=== PATIENT | female | born 1955 | race Caucasian/White ===

== ENCOUNTER 2016-05-22 12:32 | Day surgery (SDC) | payer BC ==
[~2016-05-22] VITALS: Ht 165.1 cm; Wt 108.0 kg
[~2016-05-22 12:32] MED LIST: BENICAR HCT 201 EACH PO; CELEBREX200 MG PO; GABAPENTIN300 MG PO; GABAPENTIN600 MG PO; METFORMIN HCL500 MG PO; SKELAXIN800 MG PO; SYNTHROID137 MCG PO; VITAMIN D-32000 UNI2 PO; VITAMIN E1000 UNI3 PO; WELCHOL625 MG PO; ZETIA10 MG PO
[2016-05-22 13:36] VITALS: BP 188/90
[2016-05-22 17:22] VITALS: BP 137/71
[2016-05-22 18:10] VITALS: BP 174/74
== END 2016-05-22 18:25 | disposition home or self-care (01) ==
LOC: SDC 12:32
DX: H33.012 Retinal detachment with single break, left eye (principal); I10 Essential (primary) hypertension; E11.9 Type 2 diabetes mellitus without complications; E78.5 Hyperlipidemia, unspecified; M48.00 Spinal stenosis, site unspecified; Z85.850 Personal history of malignant neoplasm of thyroid
CPT/HCPCS: J0690; J2250; J2405; J3010; J3300; J7120